=== PATIENT | female | born 1950 | race Caucasian/White ===

== ENCOUNTER → 2023-10-03 08:07 | Outpatient (REF) | payer OTHER, SELFPAY | LOC: HWWDC 08:07 | PROVIDERS: ATTENDING PHYSICIAN Family Medicine | DX: Z12.31 Encounter for screening mammogram for malignant neoplasm of breast (principal) | CPT/HCPCS: 77063; 77067 ==

== ENCOUNTER → 2024-05-23 10:48 | Outpatient (REF) | payer OTHER, SELFPAY | LOC: HWRAD 10:48 | PROVIDERS: ATTENDING PHYSICIAN Family Medicine | DX: M25.562 Pain in left knee (principal) | CPT/HCPCS: 73564 ==

== ENCOUNTER 2024-09-07 09:07 | Emergency (ER) | payer OTHER, SELFPAY ==
[2024-09-07] VITALS (7 sets, daily range): BP systolic 125–152; BP diastolic 67–88; BMI 31.6
[2024-09-07 09:38] LABS: % Basophils 1.1 % (0-2); % Eosinophils 2.6 % (0-6); % Immature Granulocytes 0.3 % (0-0.5); % Lymphocytes 28.3 % (20.5-51.1); % Monocytes 5.7 % (1.7-9.3); Absolute Basophils 0.1 10^3/uL (0-0.2); Absolute Eosinophils 0.2 10^3/uL (0-0.7); Absolute Lymphocytes 1.7 10^3/uL (1.2-3.4); Absolute Monocytes 0.4 10^3/uL (0.1-0.6); Absolute Neutrophils 3.8 10^3/uL (1.4-6.5); Hematocrit 39.4 % (37.0-47.0); Hemoglobin 13.2 g/dL (12.0-16.0); Mean Corp Hgb Conc. 33.5 g/dL (33.0-37.0); Mean Corpuscular Volume 89.5 fL (81.0-99.0); Mean Platelet Volume 9.5 fL (7.4-10.4); Nucleated Red Blood Cells % 0 %; Platelet Count 384 10^3/uL (130-400); Red Cell Dist. Width 13.5 % (11.5-14.5); White Blood Cell Count 6.1 10^3/uL (4.8-10.8)
[2024-09-07 09:52] LABS: ALT (SGPT) 26 U/L (0-35); AST (SGOT) 40 U/L (14-36); Albumin 4.2 g/dl (3.5-5.0); Alkaline Phosphatase 134 U/L (38-126); Blood Urea Nitrogen 11 mg/dl (7-17); Calcium 9.6 mg/dl (8.4-10.2); Carbon Dioxide 25 mmol/L (22-30); Chloride 104 mmol/L (98-107); Glucose 95 mg/dl (70-99); Potassium 4.7 mmol/L (3.5-5.1); Sodium 138 mmol/L (135-145); Total Bilirubin 0.6 mg/dl (0.2-1.3); Total Protein 7.1 g/dl (6.3-8.2); eGFR > 60.00
[2024-09-07 10:02] LABS: Troponin I < 0.012 ng/ml
[2024-09-07 12:57] LABS: D-Dimer 0.43 ug/mlFEU (0.00-0.50)
[2024-09-07] MEDS: TORADOL 15 MG IV (12:57)
[2024-09-07 13:08] LABS: Troponin I < 0.012 ng/ml
--- NOTE | 2024-09-07 13:54 | ED.GENMED ---
History of Present Illness
General
Chief Complaint: Chest Pain
Source: patient
Exam Limitations: none
Time Seen by Provider: 09/07/24 10:54
Nursing documentation reviewed up to this point in time: agreed with
History of Present Illness
History of Present Illness:
74-year-old female with a past medical history of hypertension, hypothyroidism who presents to the emergency room for evaluation of chest pain at the site of recent cough. Patient reports that she has been sick with a cough for the past week. She
says cough is productive of clear sputum. She says that over the past day or 2 she noticed that she is having some pain in her chest she describes tightness and occasional 'thumping' center of her chest. She denies any shortness of breath. She
denies any fevers or chills. She denies any swelling or pain in the legs. She denies any nausea, vomiting, diaphoresis, abdominal pain. She denies any other complaints.
Past History
Past History
ED Past Medical History: Cancer (Skin), HTN and Hypothyroidism
ED Past Surgical History: Orthopedic
Social History
Tobacco: Non-smoker
Alcohol: Occasional
Drug: None
Personal:
Living: with family
Review of Systems
Review of Systems
All Other Systems: ROS reviewed and negative except as documented in HPI and ROS
Constitutional: Denies fever
Respiratory: Reports cough; Denies trouble breathing
Cardiac: Reports chest pain; Denies palpitations
ABD/GI: Denies abdominal pain, nausea or vomiting
: Denies flank pain
Musculoskeletal: Denies edema, neck pain or back pain
Neurological: Denies dizzy or headache
Phy Exam
Physical Exam
Physical Exam:
General: Awake, alert, oriented x3; no acute distress
Head: Normocephalic, atraumatic
Eyes: Conjunctiva normal
Throat: Airway intact, handling secretions
Neck: Trachea midline, supple without meningismus
Lungs: Occasional scattered wheezing, coughing; normal pulse ox, normal respiratory rate
Heart: Regular rate and rhythm, no murmurs, gallops, or rubs
Abd: Soft, non distended, nontender
Neuro: No gross deficits
Extremities: No edema in extremities, equal pulses in all extremities
Scores
Heart Failure Risk
Heart Failure Risk Score: Not Applicable
Heart Score for Chest Pain Patients
STEMI patient?: Not applicable
Withdrawal Assessment of Alcohol
Withdrawal Assessment Completed?: Not applicable
Course
Orders/Labs/Results
Orders:
Orders
09/07/24 09:09
ECG [Electrocardiogram (*1)] Urgent
Reason for Study: Chest Pain
EKG- Treatment ONCE
09/07/24 09:17
IV Insert/Care/Rem.- Treatment PRN
09/07/24 09:23
Complete Blood Count/With Diff Urgent
Comprehensive Metabolic Panel Urgent
Troponin I Urgent
09/07/24 10:56
CR Chest - 2 Views Urgent
Comment:
Reason For Exam: sob, cp
09/07/24 12:34
D-Dimer Urgent
Troponin I Urgent
09/07/24 12:42
Ketorolac [Toradol] 15 mg IV NOW STA
Abnormal Lab Results
09/07/24
09:23
AST 40 H U/L
(14-36)
Alkaline Phosphatase 134 H U/L
(38-126)
09/07/24 09:23
09/07/24 09:23
Vital Signs
Initial and Last Documented VS:
Initial Vital Signs
Temp Pulse Resp BP Pulse Ox
36.6 C 74 18 151/88 96
09/07/24 09:14 09/07/24 09:14 09/07/24 09:14 09/07/24 09:14 09/07/24 09:14
Last Documented Vital Signs
Temp Pulse Resp BP Pulse Ox
36.6 C 66 15 142/67 99
09/07/24 09:14 09/07/24 11:06 09/07/24 11:06 09/07/24 11:06 09/07/24 11:06
MDM/Problems Addressed
Differential Diagnosis Includes:
Costochondritis, bronchitis, pneumonia, pneumothorax, pericarditis; ACS, PE considered less likely clinically
MDM/Problems Addressed:
74-year-old female presents to the emergency room for evaluation of atypical chest pain for the past couple days in the setting of productive cough x 1 week. Hypertensive otherwise normal vitals. Physical exam as above. EKG shows sinus rhythm no
STEMI. Labs sent off including a CBC and a CMP which showed no clinically significant abnormalities. Troponin serially undetectable. D-dimer negative. Chest x-ray shows no pneumonia or pneumothorax or other acute disease. Clinical suspicion is
for bronchitis with some costochondritis/chest wall pain from coughing. She had symptomatic improvement with Toradol. Plan to treat with steroid Dosepak, albuterol, Tylenol and NSAIDs. Stable for discharge. Patient feel comfortable with this
plan. She will follow-up with her primary doctor. Spoke about return precautions all questions answered.
Acute Exacerbation and/or Progression of Chronic Illness:
Acutely hypertensive resolved without intervention continue to monitor but no additional antihypertensives indicated in the emergency department
Acute Exacerbation and/or Progression of Chronic Illness: HTN
*Radiology
Radiology exam reviewed: preliminary read by ED provider and radiology read reviewed
*Pulse Oximetry
Patient hypoxic: no
*EKG
Interpreted by ED Provider?: Yes
Comparison EKG: no changes
Heart Rate: 72
Rate: normal
Rhythm: sinus
[place]: normal axis
Interval: normal interval
QRS Pattern: normal QRS
Ischemia: non-specific ST changes (Similar to prior)
*Critical Care Note
Total Time (30-74mins, 75-104mins- exclusive of procedures): Not Applicable
Data Reviewed
Review of Other/Old Records Reveals: Labs and Records
Source: patient and records
ED Attending Note
-
Portions of this chart may have been created with voice recognition software.� Occasional wrong word or��sound alike� substitutions may have occurred due to the inherent limitations of voice recognition software.
Discharge Plan
Departure
Patient Disposition: Home (Routine Discharge)
Date of Disposition: 09/07/24
Time of Disposition: 13:59
Patient with high blood pressure during this ER visit?: Yes
Discharge Problem:
Bronchitis, Chest pain
Instructions: Acute bronchitis in adults, Chest Pain PCP Follow Up
Prescriptions:
New
methylprednisolone [Medrol (Jose)] 4 mg tablets,dose pack
See Rx Instructions .ROUTE .COMPLEX Qty: 21 0RF
Rx Instructions:
for 6 days
albuterol sulfate 90 mcg/actuation HFA aerosol inhaler
2 puff inhalation Q6H PRN (Reason: shortness of breath or wheezing, coughing) Qty: 6.7 0RF
No Action
amlodipine 5 MG tablet
5 mg PO DAILY
citalopram [Celexa] 20 MG tablet
20 mg PO DAILY
levothyroxine 50 MCG tablet
50 mcg PO DAILY
white petrolatum [Hydrophor] 1 APPLIC ointment
1 applic S BID
Vitamin D3
1 tab PO DAILY
ondansetron [Zofran ODT] 8 MG tablet,disintegrating
8 mg PO TID PRN (Reason: nausea/vomiting) Qty: 15 0RF
pantoprazole 40 MG tablet,delayed release (DR/EC)
40 mg PO BID Qty: 30 1RF
Referrals:
Nell Oliva, DO [Family Provider] - Follow up in 2-3 days
Activity Restrictions/Additional Instructions:
Thank you for visiting the Emergency Department at [facility].
1. Please schedule a follow up appointment as directed. Call first thing tomorrow morning to make an appointment.
2. If indicated, please take your medications as instructed and indicated on discharge paperwork.
3. If any of your symptoms do not improve, or persist, or become more severe within 6-12 hours, please return to the emergency department for further care.
4. Please return to the emergency department if you develop a headache, neck pain/stiffness, fever greater than 100.4F, chest pain, shortness of breath, persistent nausea, vomiting, slurred speech, difficulty walking, numbness/tingling, weakness,
signs of infection or any other symptoms that are worrisome to you.
Please call [phone] if you have any questions.
Interventions
Interventions:
*Risk Screen - Suicide Last Done: 09/07/24 09:14
*General Assessment Last Done: 09/07/24 09:14
*Neglect/Abuse Screening Last Done: 09/07/24 11:07
*ED COVID-19 Vaccine History Last Done: 09/07/24 09:14
ED- Cardiac Assessment Last Done: 09/07/24 11:07
Discharge Date and Time
Print Language: SAO TOMEAN
== END 2024-09-07 14:45 | disposition home or self-care (01) ==
LOC: EMR 09:07
PROVIDERS: EMERGENCY PHYSICIAN Emergency Medicine; FAMILY PHYSICIAN Family Medicine
DX: J40 Bronchitis, not specified as acute or chronic (principal); R07.89 Other chest pain; I10 Essential (primary) hypertension; E03.9 Hypothyroidism, unspecified; Z85.828 Personal history of other malignant neoplasm of skin
CPT/HCPCS: 99283; 96374; 71046; 80053; 84484; 85025; 85379; 93005

== ENCOUNTER 2024-09-30 06:16 | Day surgery (SDC) | payer OTHER, SELFPAY ==
[2024-09-30 06:25] VITALS: BP 126/73; BMI 31.4
[2024-09-30] MEDS: TYLENOL 1000 MG PO (06:45)
[2024-09-30 07:00] VITALS: BMI 31.4
--- NOTE | 2024-09-30 07:06 | HP.FOC2 ---
Focused History & Physical
Chief Complaint
HPI:
Chief Complaint: Epigastric incisional hernia
HPI / Indication for Planned Procedure: Patient is a 74-year-old female with remote history of cholecystectomy from which she recovered well. A few years ago she took note of a visible swelling at the epigastric surgical scar. It is slowly
increased in size over the years and is a bit more visible prominent now. Recent outpatient evaluation confirmed the presence of a reducible epigastric incisional hernia. She presents today for scheduled operative correction.
Relevant Past Medical History: Other (Hypertension, depression, hypothyroidism)
Relevant Social History: Negative
Relevant Family History: Negative
Relevant Past Surgical History: Positive for (Foot surgeries, basal cell carcinoma excision, lap geoffrey)
Review of Systems
Review of Pertinent Systems: All Systems Negative
Medication
See Medication form for detailed medications: Yes
Medication List (including Herbals & OTC):
amlodipine 5 mg tablet 5 mg PO DAILY 05/17/18
citalopram 20 mg tablet (Celexa) 20 mg PO DAILY 05/17/18
levothyroxine 50 mcg tablet 50 mcg PO DAILY 05/17/18
cholecalciferol (vitamin D3) 25 mcg (1,000 unit) tablet (Vitamin D3) 25 mcg PO DAILY 09/26/24
mirabegron 25 mg tablet,extended release 24 hr (Myrbetriq) 25 mg PO DAILY 09/26/24
multivitamin 1 tab PO DAILY 09/26/24
Medications Reviewed: Yes
Allergies and Reactions
Patient has Allergies: Yes
Noted Allergies and Reactions:
Allergy/AdvReac Type Severity Reaction Status Date / Time
pollen extracts Allergy Mild seasonal Verified 09/30/24 06:29
allergy
raw vegetable AdvReac all raw Verified 09/30/24 06:29
fruits and
vegetables
Pertinent Physical Exam
All Other Systems: Negative
Head/Neck: Normal
Lungs: Normal
Heart: Normal
Abdomen: Other (Reducible epigastric incisional hernia)
Extremities: Normal
Neurological: Normal
Diagnosis / Assessment
74-year-old female presenting for scheduled operative correction epigastric incisional hernia
Plan / Procedure
Open incisional hernia pair with probable mesh
Anesthesia/Sedation to be done by Anesthesia Provider: Yes
--- NOTE | 2024-09-30 07:08 | W.SUR.PREOP ---
Pre-Operative Surgical Note
-
I have examined this patient prior to the performance of the scheduled procedure.
The patient's condition is unchanged from the time of the current History and
Physical and the patient is able to undergo the scheduled procedure.
--- NOTE | 2024-09-30 08:12 | W.IMMPOSTOP ---
Surgical Immed Post Op Note
-
Primary Surgeon: Dao Lovell MD
Assisting Surgeon: Jean-Claude Welch MD PGY1
Pre-op Diagnosis: Incisional epigastric hernia
Post-op Diagnosis: Incisional epigastric hernia, 2.5 cm
Procedure Performed: Open incisional hernia repair with mesh; Ventralex ST 6.4 cm round
Anesthesia Type: GETA +1% lidocaine mixed with 0.25% Marcaine with epi
Specimen / Cultures: None
Estimated Blood Loss: 4 mL
Complications: None immediate
Operative Findings: Incisional hernia at prior 12 mm cholecystectomy port site. 2.5 cm fascial defect. Underlay preperitoneal mesh repair Ventralex ST 6.4 cm round with closure of fascial defect.
[2024-09-30 08:15] VITALS: BP 101/57
[2024-09-30 08:32] VITALS: BP 90/71
[2024-09-30 08:43] VITALS: BP 143/70
[2024-09-30 08:45] VITALS: BP 138/71
[2024-09-30 11:06] LABS: Hepatitis B Surface Antigen Negative (Negative)
[2024-09-30 11:16] LABS: HIV Combo Negative (Negative)
[2024-09-30 11:23] LABS: Hepatitis C Antibody Negative (Negative)
== END 2024-09-30 09:40 | disposition home or self-care (01) ==
LOC: SDS 06:16
PROVIDERS: ATTENDING PHYSICIAN Surgery; FAMILY PHYSICIAN Family Medicine
PROC: 0WUF0JZ Supplement Abdominal Wall with Synthetic Substitute, Open Approach (ICD-10-PCS; 2024-09-30)
DX: K43.2 Incisional hernia without obstruction or gangrene (principal); I10 Essential (primary) hypertension; E03.9 Hypothyroidism, unspecified
CPT/HCPCS: 49593; 86803; 87340; 87389; C1781

== ENCOUNTER → 2024-11-06 12:56 | Outpatient (REF) | payer OTHER, SELFPAY | LOC: HWWDC 12:56 | PROVIDERS: ATTENDING PHYSICIAN Family Medicine | DX: Z12.31 Encounter for screening mammogram for malignant neoplasm of breast (principal) | CPT/HCPCS: 77063; 77067 ==

== ENCOUNTER → 2025-03-06 09:23 | Outpatient (REF) | payer OTHER, SELFPAY | LOC: HWRAD 09:23 | PROVIDERS: ATTENDING PHYSICIAN Family Medicine | DX: R10.9 Unspecified abdominal pain (principal) | CPT/HCPCS: 76700 ==

== ENCOUNTER → 2025-03-14 10:28 | Outpatient (REF) | payer OTHER, SELFPAY | LOC: HWRAD 10:28 | PROVIDERS: FAMILY PHYSICIAN Family Medicine | DX: R10.9 Unspecified abdominal pain (principal); M25.551 Pain in right hip | CPT/HCPCS: 73502; 74018 ==